=== PATIENT | male | born 1990 | race African-American/Black ===

== ENCOUNTER 2019-11-20 05:32 | Emergency (ER) | payer SELFPAY ==
[~2019-11-20] VITALS: Ht 188 cm; Wt 63.6 kg
[2019-11-20 05:37] VITALS: PULSE 81; TEMP 98.3
[2019-11-20 07:20] VITALS: BP 119/78
[2019-11-20] MEDS ORDERED: AMOXICILLIN 50500 MG PO (07:38)
== END 2019-11-20 07:15 | disposition home or self-care (01) ==
LOC: COL.ER 05:32
DX: H60.91 Unspecified otitis externa, right ear (principal); F17.210 Nicotine dependence, cigarettes, uncomplicated

== ENCOUNTER 2020-12-20 16:35 | Emergency (ER) | payer SELFPAY ==
[~2020-12-20 16:35] MED LIST: AMOXICILLIN 50500 MG PO
[2020-12-20 17:11] VITALS: TEMP 98.3
[2020-12-20 19:06] VITALS: BP 127/79; PULSE 72
== END 2020-12-20 19:06 | disposition home or self-care (01) ==
LOC: COL.ER 16:35
DX: H60.91 Unspecified otitis externa, right ear (principal)